=== PATIENT | female | born 1940 | race Caucasian/White ===

== ENCOUNTER 2019-07-09 12:12 | Outpatient (CLI) | payer OTHER ==
[2016-07-30 13:43] VITALS: BP 142/71
--- NOTE | 2019-07-10 16:52 | Diagnostic Imaging Report ---
JACQUES CHOI [facility] [id number] [facility].[address] [id number] Report Submission Date: Jul 09, 2019 4:50:35 PM CDT Patient Study Name: MIRTHA MARIE Date: Jul 09, 2019 12:00:00 AM CDT Modality Type: DEXA\OT Gender: F Description: DEXA : 42 Institution: [facility] Physician: JACQUES CHOI Exam: DEXA bone density study. History: Screening. The examination is compared to a study dated July 13, 2016. The bone mineral density in lumbar spine from L1-L4 is 0.837 grams/centimeters squared. This corresponds to a T-score -2.9. This is considered osteoporotic and carries with it a moderate risk for fracture. When compared to a previous study a 16% increase in bone mineral density is noted. The bone mineral density in the hips is 0.724 grams/centimeters sq which corresponds to a T-score -2.3. This is considered extremely osteopenic and carries with it a low risk for fracture. When compared to a previous study a 5.4% decrease in bone mineral density is noted. Impression: Osteoporosis in the lumbar spine. Extreme osteopenia in both hips. Interval increase in bone mineral density since the previous study. Slight decrease in bone mineral density in both hips in the interval. Electronically signed on Jul 09, 2019 4:50:35 PM CDT by: Oscar STRONG
== END 2019-07-09 12:22 ==
LOC: RAD 12:12
PROVIDERS: ATTEND Family Medicine
DX: M85.80 Other specified disorders of bone density and structure, unspecified site (principal)
CPT/HCPCS: 77080